=== PATIENT | female | born 1995 | race Caucasian/White ===

== ENCOUNTER → 2023-07-05 10:20 | Outpatient (REF) | payer OTHER, SELFPAY | LOC: PNTC 10:20 | PROVIDERS: ATTENDING PHYSICIAN Obstetrics & Gynecology | DX: O99.210 Obesity complicating pregnancy, unspecified trimester (principal) | CPT/HCPCS: 76805 ==

== ENCOUNTER → 2023-08-01 08:36 | Outpatient (REF) | payer OTHER, SELFPAY | LOC: PNTC 08:36 | PROVIDERS: ATTENDING PHYSICIAN Obstetrics & Gynecology | DX: O99.210 Obesity complicating pregnancy, unspecified trimester (principal) | CPT/HCPCS: 76811 ==

== ENCOUNTER → 2023-09-18 08:50 | Outpatient (REF) | payer OTHER, SELFPAY | LOC: PNTC 08:50 | PROVIDERS: ATTENDING PHYSICIAN Obstetrics & Gynecology | DX: O99.210 Obesity complicating pregnancy, unspecified trimester (principal) | CPT/HCPCS: 76816 ==

== ENCOUNTER → 2023-10-30 09:00 | Outpatient (REF) | payer OTHER, SELFPAY | LOC: PNTC 09:00 | PROVIDERS: ATTENDING PHYSICIAN Obstetrics & Gynecology | DX: O99.210 Obesity complicating pregnancy, unspecified trimester (principal) | CPT/HCPCS: 76816 ==

== ENCOUNTER 2023-12-20 02:36 | Inpatient (IN) | payer OTHER, SELFPAY ==
[2023-12-20 02:55] VITALS: BP 114/65; BMI 35.3
[2023-12-20] MEDS: LR 1000 IV ×3 (04:06→10:55)
[2023-12-20] MEDS: BENADRYL 50 MG IV (04:07)
[2023-12-20 04:15] LABS: % Basophils 0.5 % (0-2); % Eosinophils 0.9 % (0-6); % Immature Granulocytes 0.5 % (0-0.5); % Lymphocytes 23.3 % (20.5-51.1); % Monocytes 6.8 % (1.7-9.3); Absolute Eosinophils 0.1 10^3/uL (0-0.7); Absolute Lymphocytes 2.1 10^3/uL (1.2-3.4); Absolute Monocytes 0.6 10^3/uL (0.1-0.6); Hematocrit 29.2 % (37.0-47.0); Hemoglobin 9.8 g/dL (12.0-16.0); Mean Corp Hgb Conc. 33.6 g/dL (33.0-37.0); Mean Corpuscular Hgb 26.3 pg (27.0-31.0); Mean Corpuscular Volume 78.5 fL (81.0-99.0); Mean Platelet Volume 10.1 fL (7.4-10.4); Nucleated Red Blood Cells % 0 %; Platelet Count 217 10^3/uL (130-400); Red Blood Cell Count 3.72 10^6/uL (4.20-5.40); Red Cell Dist. Width 13.6 % (11.5-14.5); White Blood Cell Count 8.8 10^3/uL (4.8-10.8)
[2023-12-20] MEDS: SUBLIMAZE 100 MCG EPIDURAL (05:58)
[2023-12-20] MEDS: FENTANYL/BUPIVACAINE 100 EPIDURAL (05:58)
[2023-12-20] MEDS: PITOCIN 30 UNITS/NSS 500 ML IV (08:09)
[2023-12-20] MEDS: METHERGINE INJECTION 0.2 MG IM (13:26)
[2023-12-21] MEDS: TYLENOL 650 MG PO ×2 (01:06→18:49)
[2023-12-21 06:47] LABS: Hematocrit 27.9 % (37.0-47.0); Hemoglobin 9.2 g/dL (12.0-16.0)
[2023-12-21] MEDS: PRENATAL PLUS PO (08:27)
[2023-12-21 15:57] LABS: Syphilis/T. pallidum Ab Reflex Negative (Negative)
[2023-12-21] MEDS: FEOSOL 325 MG PO (16:36)
[2023-12-22] MEDS: TYLENOL 650 MG PO (01:53)
[2023-12-22] MEDS: PRENATAL PLUS 1 TABLET PO (09:01)
[2023-12-22] MEDS: FEOSOL 325 MG PO (09:01)
== END 2023-12-22 11:54 | disposition home or self-care (01) | DRG 807 ==
LOC: LDRP 02:36
PROVIDERS: Obstetrics & Gynecology; ADMITTING PHYSICIAN Obstetrics & Gynecology
PROC: 10E0XZZ Delivery of Products of Conception, External Approach (ICD-10-PCS; 2023-12-20)
PROC: 10907ZC Drainage of Amniotic Fluid, Therapeutic from Products of Conception, Via Natural or Artificial Opening (ICD-10-PCS; 2023-12-20)
PROC: 0HQ9XZZ Repair Perineum Skin, External Approach (ICD-10-PCS; 2023-12-20)
DX: O48.0 Post-term pregnancy (principal); Z37.0 Single live birth; Z3A.40 40 weeks gestation of pregnancy; O70.0 First degree perineal laceration during delivery; O90.81 Anemia of the puerperium; D64.9 Anemia, unspecified
CPT/HCPCS: 36415; 85014; 85018; 85025; 86780; 86850; 86900; 86901

== ENCOUNTER → 2024-07-25 10:51 | Outpatient (REF) | payer OTHER, SELFPAY | LOC: RAD 10:51 | PROVIDERS: ATTENDING PHYSICIAN Nurse Practitioner Family; FAMILY PHYSICIAN Family Medicine | DX: R22.9 Localized swelling, mass and lump, unspecified (principal) | CPT/HCPCS: 76882 ==